=== PATIENT | male | born 1970 | race Caucasian/White ===

== ENCOUNTER 2018-05-12 09:30 | Emergency (ER) | payer OTHER, BC ==
[2018-05-12 10:31] LABS: MUDS CUTOFF CONCENTRATIONS CUTOFF CONC BELOW:
[2018-05-12 10:33] LABS: BILIRUBIN,URINE NEGATIVE (NEGATIVE); GLUCOSE, URINE (UA) NEGATIVE (NEGATIVE); KETONES,URINE (UA) NEGATIVE (NEGATIVE); LEUKOCYTE ESTERASE, URINE NEGATIVE (NEGATIVE); NITRITE,URINE NEGATIVE (NEGATIVE); OCCULT BLOOD,URINE NEGATIVE (NEGATIVE); PH,URINE 6.5 PH (5.0-7.5); PROTEIN,URINE NEGATIVE (NEGATIVE); UROBILINOGEN,URINE 0.2 (NORMAL) E.U./dL (NORMAL)
[2018-05-12 10:33] LABS: BASOPHILS # (AUTO) 0.1 10^3/uL (0.0-0.1); BASOPHILS % (AUTO) 0.9 %; EOSINOPHILS # (AUTO) 0.2 10^3/uL (0.0-0.7); EOSINOPHILS % (AUTO) 2.6 %; HGB - HEMOGLOBIN 15.8 g/dL (14.0-18.0); LYMPHOCYTES # (AUTO) 1.7 10^3/uL (1.5-3.5); LYMPHOCYTES % (AUTO) 27.5 %; MEAN CORPUSCULAR HGB CONC 34.7 g/dL (32.0-36.0); MEAN CORPUSCULAR VOLUME 86.4 fL (80.0-94.0); MEAN PLATELET VOLUME 8.3 fL (7.4-11.4); MONOCYTES # (AUTO) 0.6 10^3/uL (0.0-1.0); MONOCYTES % (AUTO) 9.2 %; NEUTROPHILS # (AUTO) 3.7 10^3/uL (1.5-6.6); NEUTROPHILS % (AUTO) 59.8 %; PLT - PLATELET COUNT 232 10^3/uL (130-450); RED BLOOD COUNT 5.26 10^6/uL (4.70-6.10); RED CELL DISTRIBUTION WIDTH 13.2 % (12.0-15.0); WHITE BLOOD COUNT 6.2 x10^3/uL (4.8-10.8)
[2018-05-12 10:45] LABS: CLARITY,URINE CLEAR (CLEAR)
[2018-05-12 10:50] LABS: AMPHETAMINE SCREEN,URINE NEGATIVE (NEGATIVE); BENZODIAZEPINES SCREEN, URINE NEGATIVE (NEGATIVE); COCAINE SCREEN URINE NEGATIVE (NEGATIVE); METHADONE SCREEN, URINE NEGATIVE (NEGATIVE); METHAMPHETAMINES SCREEN, URINE NEGATIVE (NEGATIVE); OPIATE SCREEN, URINE NEGATIVE (NEGATIVE); OXYCODONE SCREEN, URINE NEGATIVE (NEGATIVE); PROPOXYPHENE SCREEN, URINE NEGATIVE (NEGATIVE); TRICYCLIC ANTIDEPRESSANT,URINE NEGATIVE (NEGATIVE)
[2018-05-12 10:51] LABS: ACETAMINOPHEN < 10 ug/mL (10-30); ALBUMIN 4.3 g/dL (3.2-5.5); ALBUMIN/GLOBULIN RATIO 1.2 (1.0-2.2); ALKALINE PHOSPHATASE 42 IU/L (42-121); ALT ALANINE AMINOTRANSFERASE 29 IU/L (10-60); AST ASPARTATE AMINOTRANSFERASE 26 IU/L (10-42); BILIRUBIN,TOTAL 0.7 mg/dL (0.2-1.0); BUN - BLOOD UREA NITROGEN 16 mg/dL (6-20); CALCIUM 9.1 mg/dL (8.5-10.3); CARBON DIOXIDE - CO2 27 mmol/L (21-32); CHLORIDE 101 mmol/L (101-111); GFR - MDRD 79 (>89); GLUCOSE 198 mg/dL (70-100); LIPASE 19 U/L (22-51); SALICYLATE < 6.0 mg/dL; SODIUM 137 mmol/L (135-145); TOTAL PROTEIN 7.8 g/dL (6.7-8.2)
--- NOTE | 2018-05-12 14:30 | ED Physician Documentation ---
PD HPI MHE - Stated complaint Stated Complaint: MHE - Chief complaint Chief Complaint: MHE - History obtained from History obtained from: Patient - History of Present Illness Primary symptom: Suicidal ideation, Depression, Manic Timing - onset: How many months ago (2) Contributing factors: Family, Money, Off meds Similar symptoms before: Diagnosis (bipolar affective disorder) Recently seen: Clinic - Additional information Additional information: 47-year-old male on Depakote and an SSRI for depression and akhil has developed worsening of his symptoms over the past 2 months. His psychiatrist at the [facility] has recommended electroconvulsive therapy. 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 He states that recently he has lost impulse control and lost about $40,000 gambling. About 3 days ago he stopped taking his medications and he has not slept. He is currently staying with his mother and today he picked up a bottle of Xanax and into the bottle into his hand and then he put it back into the bottle. His mother called 911 when he left the house in his car. He was pulled over by [facility]'s deputies and brought to the hospital. He denies suicidality and indicates he just does not know why he is here. ----- He would be better off gone. He has had trouble with impulse control he is HIV+ and he has stopped taking his meds. Review of Systems Constitutional: reports: Sweats. denies: Fever Eyes: denies: Decreased vision Ears: denies: Ear pain Nose: denies: Rhinorrhea / runny nose, Congestion Throat: denies: Sore throat Cardiac: denies: Chest pain / pressure, Palpitations Respiratory: denies: Dyspnea, Cough GI: denies: Abdominal Pain, Nausea, Vomiting : denies: Dysuria, Frequency Skin: denies: Rash Musculoskeletal: denies: Neck pain, Back pain, Extremity pain Neurologic: denies: Generalized weakness, Focal weakness, Numbness, Difficulty speaking, Headache, Head injury, LOC Psychiatric: reports: Depressed, Suicidal, Insomnia PD PAST MEDICAL HISTORY - Past Medical History Past Medical History: Yes Endocrine/Autoimmune: Type 2 diabetes Psych: Depression, Anxiety, Other Other Past Medical History: gambling addiction - Past Surgical History Past Surgical History: No - Present Medications Home Medications: Ambulatory Orders Medication Instructions Recorded Confirmed Alprazolam [Xanax] 0.25 mg PO PRN 05/12/18 Desvenlafaxine Succinate [Pristiq 75 mg PO DAILY PM 05/12/18 05/12/18 ER] Divalproex Sodium [Depakote] 2,000 mg PO DAILY 05/12/18 05/12/18 Divalproex Sodium [Depakote] 3,000 mg PO DAILY PM 05/12/18 05/12/18 Insulin Glargine [Lantus Solostar] 22 unit DAILY PM 05/12/18 05/12/18 Insulin Lispro [Humalog] 8 unit SUBQ DAILY 05/12/18 05/12/18 Rosuvastatin Calcium [Crestor] 20 mg PO 05/12/18 metFORMIN [Glucophage] 1,000 mg PO BIDWM 05/12/18 05/12/18 - Allergies Allergies/Adverse Reactions: Allergies Allergy/AdvReac Type Severity Reaction Status Date / Time morphine Allergy Hives Verified 05/12/18 09:39 Sulfa (Sulfonamide Allergy Hives Verified 05/12/18 09:38 Antibiotics) - Social History Does the pt smoke?: No Smoking Status: Never smoker PD ED PE NORMAL - Vitals Vital signs reviewed: Yes (diastolic hypertension ) - General General: Alert and oriented X 3, No acute distress, Well developed/nourished - HEENT HEENT: Atraumatic, PERRL, EOMI - Neck Neck: Supple, no meningeal sign, No bony TTP - Cardiac Cardiac: RRR, No murmur - Respiratory Respiratory: No respiratory distress, Clear bilaterally - Abdomen Abdomen: Soft, Non tender - Back Back: No CVA TTP, No spinal TTP - Derm Derm: Normal color, Warm and dry, No rash - Extremities Extremities: No deformity, No edema - Neuro Neuro: Alert and oriented X 3, cut order hand 2-12 intact, No motor deficit, No sensory deficit, Normal speech Eye Opening: Spontaneous Motor: Obeys Commands Verbal: Oriented GCS Score: 15 - Psych Psych: Other (mood is angry and the affect is with blunted range. ) Results - Vitals Vitals: Vital Signs - 24 hr 05/12/18 05/12/18 09:31 15:58 Temperature 36.2 C L 36.2 C L Heart Rate 84 76 Respiratory 20 12 Rate Blood Pressure 116/101 H 118/80 O2 Saturation 98 97 Oxygen O2 Source Room air - Labs Labs: Laboratory Tests 05/12/18 05/12/18 05/12/18 09:50 10:22 10:22 WBC 6.2 RBC 5.26 Hgb 15.8 Hct 45.4 MCV 86.4 MCH 30.0 MCHC 34.7 RDW 13.2 Plt Count 232 MPV 8.3 Neut # (Auto) 3.7 Lymph # (Auto) 1.7 [place] # (Auto) 0.6 Eos # (Auto) 0.2 Baso # (Auto) 0.1 Absolute Nucleated RBC 0.00 Nucleated RBC % 0.0 Sodium 137 Potassium 4.0 Chloride 101 Carbon Dioxide 27 Anion Gap 9.0 BUN 16 Creatinine 1.0 Estimated GFR (MDRD) 79 L Glucose 198 H POC Whole Bld Glucose Calcium 9.1 Total Bilirubin 0.7 AST 26 ALT 29 Alkaline Phosphatase 42 Total Protein 7.8 Albumin 4.3 Globulin 3.5 Albumin/Globulin Ratio 1.2 Lipase 19 L Urine Color YELLOW Urine Clarity CLEAR Urine pH 6.5 Ur Specific [place] 1.020 Urine Protein NEGATIVE Urine Glucose (UA) NEGATIVE Urine Ketones NEGATIVE Urine Occult Blood NEGATIVE Urine Nitrite NEGATIVE Urine Bilirubin NEGATIVE Urine Urobilinogen 0.2 (NORMAL) Ur Leukocyte Esterase NEGATIVE Ur Microscopic Review NOT INDICATED Urine Culture Comments NOT INDICATED Salicylates < 6.0 Urine Opiates Screen NEGATIVE Ur Oxycodone Screen NEGATIVE Urine Methadone Screen NEGATIVE Ur Propoxyphene Screen NEGATIVE Acetaminophen < 10 L Ur Barbiturates Screen NEGATIVE Ur Tricyclics Screen NEGATIVE Ur Phencyclidine Scrn NEGATIVE Ur Amphetamine Screen NEGATIVE U Methamphetamines Scrn NEGATIVE U Benzodiazepines Scrn NEGATIVE Urine Cocaine Screen NEGATIVE U Cannabinoids Screen NEGATIVE Ethyl Alcohol < 5.0 05/12/18 13:23 WBC RBC Hgb Hct MCV MCH MCHC RDW Plt Count MPV Neut # (Auto) Lymph # (Auto) [place] # (Auto) Eos # (Auto) Baso # (Auto) Absolute Nucleated RBC Nucleated RBC % Sodium Potassium Chloride Carbon Dioxide Anion Gap BUN Creatinine Estimated GFR (MDRD) Glucose POC Whole Bld Glucose 146 H Calcium Total Bilirubin AST ALT Alkaline Phosphatase Total Protein Albumin Globulin Albumin/Globulin Ratio Lipase Urine Color Urine Clarity Urine pH Ur Specific [place] Urine Protein Urine Glucose (UA) Urine Ketones Urine Occult Blood Urine Nitrite Urine Bilirubin Urine Urobilinogen Ur Leukocyte Esterase Ur Microscopic Review Urine Culture Comments Salicylates Urine Opiates Screen Ur Oxycodone Screen Urine Methadone Screen Ur Propoxyphene Screen Acetaminophen Ur Barbiturates Screen Ur Tricyclics Screen Ur Phencyclidine Scrn Ur Amphetamine Screen U Methamphetamines Scrn U Benzodiazepines Scrn Urine Cocaine Screen U Cannabinoids Screen Ethyl Alcohol PD MEDICAL DECISION MAKING - ED course Complexity details: reviewed old records, reviewed results, re-evaluated patient, considered differential, d/w patient ED course: 47 y/o male with a history of bipolar affective disorder has stopped his medications and is now manic and feels he is "done with it" He does not specifically identify suicide. He has stopped eating and drinking as well. The patient is at risk and the social worker delinquency prevention is consulted and agrees and has asked the DCR to come to the ED to detain the patient as they believe the patient's actions indicate he will be non-compliant. This is likely. The patient is voluntary and beds are being evaluated. At the end of my shift care is turned over to Dr. Kerwin Millan. Departure - Departure Clinical Impression: Depression Qualifiers: Depression Type: unspecified Qualified Code(s): F32.9 - Major depressive disorder, single episode, unspecified Bipolar affective disorder Qualifiers: Active/Remission status: currently active Current bipolar episode type: mixed Current episode severity: moderate Qualified Code(s): F31.62 - Bipolar disorder, current episode mixed, moderate
--- NOTE | 2018-05-13 07:57 | ED Physician Documentation ---
History of Present Illness - Stated complaint Stated Complaint: MHE - Chief complaint Chief Complaint: MHE PD PAST MEDICAL HISTORY - Past Medical History Past Medical History: Yes Endocrine/Autoimmune: Type 2 diabetes Psych: Depression, Anxiety, Other Other Past Medical History: gambling addiction - Past Surgical History Past Surgical History: No - Present Medications Home Medications: Ambulatory Orders Medication Instructions Recorded Confirmed Alprazolam [Xanax] 0.25 mg PO PRN 05/12/18 Desvenlafaxine Succinate [Pristiq 75 mg PO DAILY PM 05/12/18 05/12/18 ER] Divalproex Sodium [Depakote] 2,000 mg PO DAILY 05/12/18 05/12/18 Divalproex Sodium [Depakote] 3,000 mg PO DAILY PM 05/12/18 05/12/18 Insulin Glargine [Lantus Solostar] 22 unit DAILY PM 05/12/18 05/12/18 Insulin Lispro [Humalog] 8 unit SUBQ DAILY 05/12/18 05/12/18 Rosuvastatin Calcium [Crestor] 20 mg PO 05/12/18 metFORMIN [Glucophage] 1,000 mg PO BIDWM 05/12/18 05/12/18 Darunavir/Cobicistat [Prezcobix 800 mg PO DAILY 05/13/18 05/13/18 800 mg-150 mg Tablet] Emtricitab/Rilpiviri/Tenof Ala 200 mg PO DAILY 05/13/18 05/13/18 [Odefsey Tablet] - Allergies Allergies/Adverse Reactions: Allergies Allergy/AdvReac Type Severity Reaction Status Date / Time morphine Allergy Hives Verified 05/12/18 09:39 Sulfa (Sulfonamide Allergy Hives Verified 05/12/18 09:38 Antibiotics) - Social History Does the pt smoke?: No Smoking Status: Never smoker Results - Vitals Vitals: Vital Signs - 24 hr 05/12/18 05/12/18 05/13/18 09:31 15:58 04:44 Temperature 36.2 C L 36.2 C L 36.6 C Heart Rate 84 76 73 Respiratory 20 12 16 Rate Blood Pressure 116/101 H 118/80 128/74 O2 Saturation 98 97 95 05/13/18 08:14 Temperature 36.6 C Heart Rate 80 Respiratory 16 Rate Blood Pressure 130/75 O2 Saturation 100 Oxygen O2 Source Room air - EKG (time done) 0813 Rate: Rate (enter#) Rhythm: NSR [place]: Normal Intervals: Normal SD, QRS normal. No: Prolonged SD, Prolonged QT, Wide QRS QRS: Normal Ischemia: Normal ST segments - Labs Labs: Laboratory Tests 05/12/18 05/12/18 05/12/18 09:50 10:22 10:22 WBC 6.2 RBC 5.26 Hgb 15.8 Hct 45.4 MCV 86.4 MCH 30.0 MCHC 34.7 RDW 13.2 Plt Count 232 MPV 8.3 Neut # (Auto) 3.7 Lymph # (Auto) 1.7 [place] # (Auto) 0.6 Eos # (Auto) 0.2 Baso # (Auto) 0.1 Absolute Nucleated RBC 0.00 Nucleated RBC % 0.0 Sodium 137 Potassium 4.0 Chloride 101 Carbon Dioxide 27 Anion Gap 9.0 BUN 16 Creatinine 1.0 Estimated GFR (MDRD) 79 L Glucose 198 H POC Whole Bld Glucose Calcium 9.1 Total Bilirubin 0.7 AST 26 ALT 29 Alkaline Phosphatase 42 Total Protein 7.8 Albumin 4.3 Globulin 3.5 Albumin/Globulin Ratio 1.2 Lipase 19 L Urine Color YELLOW Urine Clarity CLEAR Urine pH 6.5 Ur Specific [place] 1.020 Urine Protein NEGATIVE Urine Glucose (UA) NEGATIVE Urine Ketones NEGATIVE Urine Occult Blood NEGATIVE Urine Nitrite NEGATIVE Urine Bilirubin NEGATIVE Urine Urobilinogen 0.2 (NORMAL) Ur Leukocyte Esterase NEGATIVE Ur Microscopic Review NOT INDICATED Urine Culture Comments NOT INDICATED Salicylates < 6.0 Urine Opiates Screen NEGATIVE Ur Oxycodone Screen NEGATIVE Urine Methadone Screen NEGATIVE Ur Propoxyphene Screen NEGATIVE Acetaminophen < 10 L Ur Barbiturates Screen NEGATIVE Ur Tricyclics Screen NEGATIVE Ur Phencyclidine Scrn NEGATIVE Ur Amphetamine Screen NEGATIVE U Methamphetamines Scrn NEGATIVE U Benzodiazepines Scrn NEGATIVE Urine Cocaine Screen NEGATIVE U Cannabinoids Screen NEGATIVE Ethyl Alcohol < 5.0 05/12/18 13:23 WBC RBC Hgb Hct MCV MCH MCHC RDW Plt Count MPV Neut # (Auto) Lymph # (Auto) [place] # (Auto) Eos # (Auto) Baso # (Auto) Absolute Nucleated RBC Nucleated RBC % Sodium Potassium Chloride Carbon Dioxide Anion Gap BUN Creatinine Estimated GFR (MDRD) Glucose POC Whole Bld Glucose 146 H Calcium Total Bilirubin AST ALT Alkaline Phosphatase Total Protein Albumin Globulin Albumin/Globulin Ratio Lipase Urine Color Urine Clarity Urine pH Ur Specific [place] Urine Protein Urine Glucose (UA) Urine Ketones Urine Occult Blood Urine Nitrite Urine Bilirubin Urine Urobilinogen Ur Leukocyte Esterase Ur Microscopic Review Urine Culture Comments Salicylates Urine Opiates Screen Ur Oxycodone Screen Urine Methadone Screen Ur Propoxyphene Screen Acetaminophen Ur Barbiturates Screen Ur Tricyclics Screen Ur Phencyclidine Scrn Ur Amphetamine Screen U Methamphetamines Scrn U Benzodiazepines Scrn Urine Cocaine Screen U Cannabinoids Screen Ethyl Alcohol PD MEDICAL DECISION MAKING - ED course ED course: assumed care 7 AM 05/13/18 47 male hx depression and anxiety per EMP and SW and NN from yesterday, pt has been non compliant with his meds, is angry "in a rage", depressed, suicidal with numerous plans to harm self including attempted OD witnessed by mother brought in by police medically cleared by Dr Che seen by SW who felt pt was poor chuy as evidenced by refusing to eat drink or take meds so DCR was dispatched and determined pt was voluntary and could be evaluated and place by SW after all SW MHE is in chart now pending ER staff and/or [facility] is fine pt req imodium for his chronic diarrhea that is due to his meds - this was ordered I went to see pt he is sleeping peacefully later awake and we spoke, he is calm cooperatove and agreeable to voluntary placement for mental health nurse Codey able to place pt at [facility] complete Departure - Departure Disposition: 65 Psych Hosp/Unit DC/Xfer Clinical Impression: Depression Qualifiers: Depression Type: unspecified Qualified Code(s): F32.9 - Major depressive disorder, single episode, unspecified Bipolar affective disorder Qualifiers: Active/Remission status: currently active Current bipolar episode type: mixed Current episode severity: moderate Qualified Code(s): F31.62 - Bipolar disorder, current episode mixed, moderate
[2018-05-13 08:16] VITALS: BP 130/75
[2018-05-13] MEDS ORDERED: LOPERAMIDE 2 MG CAPSULE PO STA (08:35)
== END 2018-05-13 12:15 ==
LOC: EEVIPCON 09:30 → ED 09:30
DX: F31.62 Bipolar disorder, current episode mixed, moderate (principal); E11.9 Type 2 diabetes mellitus without complications; Z72.6 Gambling and betting; F41.9 Anxiety disorder, unspecified; Z21 Asymptomatic human immunodeficiency virus [HIV] infection status
CPT/HCPCS: 36415; 80053; 80306; 80307; 80320; 80329; 81003; 83690; 85025; 93005; 99285; A9270; 80164; 81001; 87086; 99284